=== PATIENT | male | born 1960 | race Caucasian/White ===

== ENCOUNTER 2021-10-12 17:50 | Emergency (ER) | payer MEDICARE, SELFPAY ==
--- NOTE | ~2021-10-12 | XR_ITS ---
EXAMINATION: XR chest 1V portable Exam Date/Time: 10/12/2021 19:35 CDT CLINICAL HISTORY: lightheadedness,DRUG USE,STUPOR Comparison: 05/08/2007. RESULT: Lines, tubes, and devices: Partially visualized cervical fusion hardware. Lungs and pleura: Clear. Cardiomediastinal silhouette: Stable cardiomediastinal silhouette. Other: No acute osseous or upper abdominal finding. IMPRESSION: No acute cardiopulmonary process Reviewed, dictated and finalized at location K.
[2021-10-12 17:50] VITALS: BP 148/89; PULSE 93; RESP 16; TEMP 36.8; O2SAT 100
--- NOTE | 2021-10-12 17:57 | ECG_ITS ---
Measurements Intervals [place] Rate: 96 P: 67 [place]: 127 QRS: 17 QRSD: 101 T: 44 QT: 394 QTc: 498 Interpretive Statements SINUS RHYTHM INCOMPLETE RIGHT BUNDLE BRANCH BLOCK BASELINE ARTIFACT- I, II, III, AVL, AVF, V1-V6 BORDERLINE ECG Electronically Signed On 10-12-2021 20:14:08 CDT by Jose Gorman D.O.
--- NOTE | 2021-10-12 18:59 | PC.NURSE ---
pt screaming out from room that he is dying. pt diaphoretic. states is withdrawing from fentanyl. last used today with his subaxone.
--- NOTE | 2021-10-12 19:31 | ED.GENADULT ---
HPI - General Adult General Chief complaint: Dizziness Stated complaint: lightheaded s/p fentanyl ingestion Time Seen by Provider: 10/12/21 18:56 Source: patient Mode of arrival: EMS History of Present Illness HPI narrative: This is a 60 year old male with history of polysubstance abuse who presents for evaluation of lightheadedness after using drugs. PAtient states 2 hours ago he smoke fentanyl and he took suboxone a the same time. Patient also reports using cocaine at the same time. He is not prescribed suboxone but he states he took it think it would help with withdrawals. He is complaining of sweats and being cold. He denies chest pain, nausea, vomiting. HE does report some shortness of breath. Related Data Home Medications Medication Instructions Recorded Confirmed buprenorphine-naloxone [Suboxone] 1 tablet SUBLINGUAL DAILY 10/12/21 10/12/21 paroxetine HCl [Paxil] 40 mg PO QAM 10/12/21 10/12/21 quetiapine [Seroquel] 400 mg PO DAILY 10/12/21 10/12/21 Allergies Allergy/AdvReac Type Severity Reaction Status Date / Time No Known Allergies Allergy Unverified 10/12/21 17:53 Review of Systems Review of Systems: All systems reviewed & are unremarkable except as noted in HPI and below Constitutional: Constitutional: Reports chills, Reports fatigue and Denies fever(s) Cardiovascular: Cardiovascular: Denies chest pain and Denies radiating jaw, neck or arm pain Respiratory: Respiratory: Denies cough, Reports dyspnea and Denies wheezing Gastrointestinal: Gastrointestinal: Denies abdominal pain, Denies nausea and Denies vomiting Neurologic: Reports weakness PMFSH Past Medical History Medical History (Updated 10/13/21 @ 07:57 by Mariann Pappas MD) Hyperlipidemia Surgical History Surgical History (Updated 10/12/21 @ 19:47 by Mariann Pappas MD) H/O neck surgery Social History Social History (Updated 10/12/21 @ 19:47 by Mariann Pappas MD) Smoking status: Never smoker Alcohol intake: former Substance use type: crack/cocaine, opiates, painkillers and IV drugs Exam Const: General: no acute distress Orientation/consciousness: patient oriented x3 Eyes: EOM: EOMs intact bilaterally Resp: Effort & Inspection: normal respiratory effort and no retractions Auscultation: clear to auscultation bilaterally Cardio: Rate: regular rate Rhythm: regular rhythm Heart sounds: no murmurs GI: GI Palp: Yes Soft to palpation, No Tenderness to palpation present (GI) and No Guarding due to palpation present (GI) Auscultation: normal bowel sounds Skin: Other: superficial sores to his face, no drainage, no erythema Neuro: General: patient oriented x3, moves all extremities and CN's II-XI intact bilaterally Extrem: General: normal to inspection Psych: Mental Status: mental status grossly normal Course Reevaluation(s) Reevaluation #1: Patient has been up and awake. PAtient looking for a ride Date: 10/13/21 Time: :22 Vital Signs Vital signs: Vital Signs Temperature 98.2 F 10/12/21 17:50 Pulse Rate 93 10/12/21 17:50 Respiratory Rate 16 10/12/21 17:50 Blood Pressure 148/89 H 10/12/21 17:50 Pulse Oximetry 100 10/12/21 17:50 Temperature 98.2 F 10/12/21 17:50 Pulse Rate 93 10/12/21 17:50 Respiratory Rate 16 10/12/21 17:50 Blood Pressure 148/89 H 10/12/21 17:50 Pulse Oximetry 100 10/12/21 17:50 Medical Decision Making Vital Signs Vital Signs: Vital Signs Temperature 98.2 F 10/12/21 17:50 Pulse Rate 93 10/12/21 17:50 Respiratory Rate 16 10/12/21 17:50 Blood Pressure 148/89 H 10/12/21 17:50 Pulse Oximetry 100 10/12/21 17:50 Temperature 98.2 F 10/12/21 17:50 Pulse Rate 93 10/12/21 17:50 Respiratory Rate 16 10/12/21 17:50 Blood Pressure 148/89 H 10/12/21 17:50 Pulse Oximetry 100 10/12/21 17:50 Lab Data Result diagrams: 10/12/21 19:45 10/12/21 19:45 Labs: Lab Results 10/12/21 0
[2021-10-12 19:51] LABS: Basophils Percent Auto 0.1 % (0.2-1.2); Hematocrit 33.1 % (42.0-52.0); Hemoglobin 10.7 g/dL (14.0-18.0); Immature Granulocyte Absolute 0.03 K/mm3 (0.00-0.031); Immature Granulocyte Percent A 0.3 % (0-0.5); Lymphocytes Absolute Auto 0.66 K/mm3 (0.9-3.2); Lymphocytes Percent Auto 7.5 % (18.3-44.2); Mean Corpuscular HGB Conc 32.3 g/dl (32-36); Mean Corpuscular Hemoglobin 27.4 pg (26-34); Mean Corpuscular Volume 84.7 fl (80-100); Mean Platelet Volume 8.8 fl (7.4-10.4); Monocytes Absolute Auto 0.3 K/mm3 (0.1-0.6); Monocytes Percent Auto 3.3 % (2.6-8.5); Neutrophils Absolute Auto 7.8 K/mm3 (1.3-6.7); Neutrophils Percent Auto 88.8 % (45.5-73.1); Platelet Count Result 684 k/mm3 (150-375); Red Blood Count 3.91 M/mm3 (4.6-6.20); Red Cell Distribution Width 13.7 % (11.5-14.5); White Blood Count 8.8 K/mm3 (4.5-10.0)
[2021-10-12 20:02] LABS: Alanine Aminotransferase 17 U/L (6-50); Albumin Level 4.1 g/dL (3.5-5.1); Alkaline Phosphatase 91 U/L (38-126); Anion Gap 7 mmol/L (8-16); Aspartate Amino Transferase 45 U/L (17-59); Bilirubin,Total 0.2 mg/dL (0.2-1.3); Blood Urea Nitrogen 10 mg/dL (9-20); Calcium 9.2 mg/dL (8.4-10.2); Carbon Dioxide 22 mmol/L (22-30); Chloride 105 mmol/L (98-107); Creatine Kinase 87 U/L (55-170); Estimated CRCL calculation 105 ml/min; Estimated Glomerular Filt Rate > 60; Ethanol < 10 mg/dL (<10); Glucose 137 mg/dL (65-110); INR 1.1; Lipase 260 U/L (23-300); Magnesium 2.2 mg/dL (1.6-2.3); Partial Thromboplastin Time 29.8 SECONDS (22.3-36.8); Potassium 3.3 mmol/L (3.4-5.0); Prothrombin Time 13.8 Seconds (11.1-14.7); Sodium 134 mmol/L (137-145)
--- NOTE | 2021-10-12 20:14 | PC.NURSE ---
Patient is rocking back and forth sitting in bed and keeps stating, I feel like you are all letting me Patient reassured we are monitoring him.
[2021-10-12 20:44] LABS: Appearance Urine Clear (Clear); Bilirubin Urine Negative (Negative); Blood Urine Negative (Negative); Color Urine Yellow (Yellow); Glucose Urine UA Negative (Negative); Ketones Urine 1+ mg/dL (Negative); Leukocyte Esterase Ur Negative LEU/UL (Negative); Nitrate Urine Negative (Negative); Protein Urine 1+ mg/dL (Negative); Specific Grav Ur 1.015 (1.001-1.035); Urobilinogen Urine 0.2 mg/dL (<2.0); pH Urine 8.5 (5.0-9.0)
[2021-10-12 20:53] LABS: Mucus Urine Few /lpf; WBC Urine 0-3 /hpf
[2021-10-12 20:58] LABS: Add Urine Microscopic? YES
[2021-10-12 21:06] LABS: Amphetamine Screen Urine Negative (Negative); Barbiturate Screen Urine Negative (Negative); Benzodiazepines Screen Urine Negative (Negative); Cannabinoid Screen Urine Negative (Negative); Cocaine Screen Urine Positive (Negative); Methadone Screen Urine Negative (Negative); Opiate Screen Urine Positive (Negative); Phencyclidine Screen Urine Negative (Negative)
[2021-10-12] MEDS: POTASSIUM CHLORIDE 20 MEQ TABLET 40 MEQ PO (21:50)
--- NOTE | 2021-10-12 22:55 | PC.NURSE ---
patient gave this RN permission to talk to son and
--- NOTE | 2021-10-13 00:21 | PC.NURSE ---
Patient acted out Yelling at nurse stating, I need to get the F out of here. You people are just letting me . [place] nee [place] from the airport Then this RN calmed him down and got him back into bed. THen the patient then proceeded to state, I need some Fentanyl for my stomach pain before I leave. This RN informed CHICA Pappas.
--- NOTE | 2021-10-13 01:33 | PC.NURSE ---
THis RN talked to SON about why patient was here and what was happening with the patient.
== END 2021-10-13 01:55 | disposition left against medical advice (07) ==
PROVIDERS: Emergency Provider General Practice; PCP Family Medicine
DX: F19.10 Other psychoactive substance abuse, uncomplicated (principal); E78.5 Hyperlipidemia, unspecified; R06.02 Shortness of breath; I45.10 Unspecified right bundle-branch block; Z79.899 Other long term (current) drug therapy
CPT/HCPCS: 36415; 71045; 80053; 80307; 81001; 82550; 83690; 83735; 85025; 85610; 85730; 93005; 99283; A9270